=== PATIENT | female | born 1975 | race Caucasian/White ===

== ENCOUNTER → 2024-03-20 12:26 | Outpatient (REF) | payer OTHER, SELFPAY | LOC: RAD 12:26 | DX: Z87.891 Personal history of nicotine dependence (principal) | CPT/HCPCS: 71271 ==

== ENCOUNTER → 2024-10-11 12:10 | Outpatient (REF) | payer OTHER, SELFPAY ==
[2024-10-11 14:12] LABS: Hepatitis B Surface Antibody Positive
== END ==
LOC: OHS 12:10
PROVIDERS: ATTENDING PHYSICIAN Nurse Practitioner Family
DX: Z23 Encounter for immunization (principal)
CPT/HCPCS: 36415; 86706

== ENCOUNTER → 2025-03-19 12:29 | Outpatient (REF) | payer OTHER, SELFPAY | LOC: WDC 12:29 | PROVIDERS: ATTENDING PHYSICIAN Internal Medicine | DX: Z12.31 Encounter for screening mammogram for malignant neoplasm of breast (principal) | CPT/HCPCS: 77063; 77067 ==

== ENCOUNTER → 2025-04-02 11:57 | Outpatient (REF) | payer OTHER, SELFPAY | LOC: RAD 11:57 | PROVIDERS: ATTENDING PHYSICIAN Internal Medicine | DX: Z87.891 Personal history of nicotine dependence (principal); F17.200 Nicotine dependence, unspecified, uncomplicated | CPT/HCPCS: 71271 ==

== ENCOUNTER → 2025-04-23 09:23 | Outpatient (REF) | payer OTHER, SELFPAY | LOC: WDC 09:23 | PROVIDERS: ATTENDING PHYSICIAN Internal Medicine | DX: R92.333 Mammographic heterogeneous density, bilateral breasts (principal) | CPT/HCPCS: 76641 ==